=== PATIENT | male | born 1960 | race Two or more races ===

== ENCOUNTER 2020-05-14 05:30 | Day surgery (SDC) | payer OTHER ==
[~2020-05-14 05:30] MED LIST: AMBIEN10 MG PO; AMLODIPINE BESYL5 MG PO; AMOX1TAB12 PO; ATIVAN1 M1 PO; BUPROPION HCL200 M1 PO; IRBESARTAN-HCT1 EAC1 PO; PERCOCET 5/3251 TAB PO; SYNTHROID75 MCG PO; TORADOL60 MG IM; VITAMIN B-121000 MC4 PO
[2020-05-14] MEDS ORDERED: KEFLEX500 MG PO (10:29)
[2020-05-14] MEDS ORDERED: ULTRAM50 MG PO (10:29)
[2020-05-14] MEDS ORDERED: SURFAK240 M1 PO (10:30)
== END 2020-05-14 13:25 | disposition home or self-care (01) ==
LOC: CIR.AMB 05:30
PROVIDERS: ATTEND Surgery
DX: N48.6 Induration penis plastica (principal); N47.1 Phimosis; Z20.828 Contact with and (suspected) exposure to other viral communicable diseases